=== PATIENT | male | born 1980 ===

== ENCOUNTER 2025-04-10 06:21 | Day surgery (SDC) | payer BC, SELFPAY | END 2025-04-10 14:31 | disposition home or self-care (01) | LOC: GI 06:21 | PROVIDERS: ATTENDING PHYSICIAN Internal Medicine Gastroenterology | DX: Z12.11 Encounter for screening for malignant neoplasm of colon (principal); D12.5 Benign neoplasm of sigmoid colon; K63.5 Polyp of colon; K51.40 Inflammatory polyps of colon without complications; K62.1 Rectal polyp | CPT/HCPCS: 45385; 88305 ==